=== PATIENT | female | born 1975 | race African-American/Black ===

== ENCOUNTER 2018-02-01 13:53 | Emergency (ER) | payer BC, SELFPAY ==
[2018-02-01 16:20] LABS: Bilirubin Negative (Negative); Blood, Urine Negative (Negative); Clarity CLEAR (Clear); Glucose, Urine (Dipstick) Negative (Negative); Leukocyte Negative (Negative); Nitrite Negative (Negative); Protein, Urine (Dipstick) Negative (Neg-Trace)
[2018-02-01 16:23] LABS: Pregnancy Test - Urine (BHCG) Negative (Negative); Pregu Control Background? CLEAR/WHITE (CLR/WHITE); Pregu Control Bar Appear? YES (CONTROL BAR)
[2018-02-01 16:36] LABS: #Basophils 0.1 thou/uL (0.0-0.2); #Lymphocytes 3.5 thou/uL (1.20-3.40); #Monocytes 0.5 thou/uL (0.11-0.59); #Neutrophils 3.4 thou/uL (1.40-6.50); %Basophils 1.1 % (0.0-1.0); %Eosinophils 0.2 % (0.0-10.0); %Lymphocytes 47.4 % (21.0-51.0); %Neutrophils 45.3 % (42.0-75.0); Hemoglobin 12.6 g/dL (12.0-16.0); Mean Corpuscular HGB CONC 32.6 g/dL (32.0-36.0); Mean Corpuscular Hemoglobin 24.7 pg (27.0-31.0); Mean Corpuscular Volume 75.7 fL (78.0-98.0); Mean Platelet Volume 8.7 fL (7.4-10.4); Platelet Count 208 thou/uL (130-400); RBC Distribution Width 13.2 % (11.5-14.5); Red Blood Cell (RBC) Count 5.09 mill/uL (4.20-5.40); White Blood Cell (WBC) Count 7.4 thou/uL (4.8-10.8)
[2018-02-01 16:55] LABS: ALT (SGPT) 13 U/L (8-55); AST (SGOT) 17 U/L (5-34); Albumin 4.2 g/dL (3.5-5.0); Alkaline Phosphatase 53 U/L (40-150); Anion Gap 13 mmol/L (10-20); BUN (Urea Nitrogen) 9 mg/dL (7.0-18.7); Bilirubin, Total 0.5 mg/dL (0.2-1.2); Calc. Creatinine Clearance 0 mL/min (70-130); Calcium 9.3 mg/dL (7.8-10.44); Carbon Dioxide 25 mmol/L (22-29); Chloride 105 mmol/L (98-107); Estimated GFR-MDRD 90; Globulin 3.6 g/dL (2.4-3.5); Glucose 95 mg/dL (70-105); Protein, Total 7.8 g/dL (6.0-8.3); Sodium 139 mmol/L (136-145)
--- NOTE | 2018-02-01 17:27 | CT ---
CT PELVIS WITH CONTRAST: HISTORY: Pelvic pain. COMPARISON: None. FINDINGS: There appears to be a prior ventral hernia repair, incompletely evaluated. No dilated loops of bowel in the abdomen. The appendix is felt to be visualized and appears normal. Bilateral fallopian tube closure devices a re appreciated. No free fluid within the pelvis. No acute osseous abnormality. IMPRESSION: No acute intrapelvic abnormality. POS: [facility]
[2018-02-01] MEDS ORDERED: Ketorolac Tromethamine 30 MG/ML VIAL ONE (17:29)
== END 2018-02-01 17:46 | disposition home or self-care (01) ==
LOC: ERS 13:53
DX: R10.2 Pelvic and perineal pain (principal); F17.210 Nicotine dependence, cigarettes, uncomplicated; Z71.6 Tobacco abuse counseling
CPT/HCPCS: 36415; 72193; 80053; 81003; 81025; 85025; 96374; 99406; J1885

== ENCOUNTER 2018-05-04 19:04 | Emergency (ER) | payer BC | END 2018-05-04 19:45 | disposition left against medical advice (07) | LOC: ERS 19:04 | DX: Z53.21 Procedure and treatment not carried out due to patient leaving prior to being seen by health care provider (principal) ==

== ENCOUNTER 2018-06-24 18:36 | Emergency (ER) | payer BC, OTHER ==
[2018-06-24] MEDS ORDERED: Cyclobenzaprine 10 MG TAB ONE (20:07)
[2018-06-24] MEDS ORDERED: Ketorolac Tromethamine 30 MG/ML VIAL ONE (20:07)
== END 2018-06-24 20:25 | disposition home or self-care (01) ==
LOC: ERS 18:36
DX: M54.5 Low back pain (principal); M54.2 Cervicalgia; F17.210 Nicotine dependence, cigarettes, uncomplicated; G43.909 Migraine, unspecified, not intractable, without status migrainosus; V43.62XA Car passenger injured in collision with other type car in traffic accident, initial encounter
CPT/HCPCS: 96372; J1885

== ENCOUNTER 2023-10-12 14:45 | Emergency (ER) | payer BC, SELFPAY | END 2023-10-12 16:22 | disposition home or self-care (01) | LOC: ERS 14:45 | DX: F45.8 Other somatoform disorders (principal); R06.02 Shortness of breath; G43.909 Migraine, unspecified, not intractable, without status migrainosus; I10 Essential (primary) hypertension; R73.03 Prediabetes; F17.210 Nicotine dependence, cigarettes, uncomplicated; Z55.6 Problems related to health literacy | CPT/HCPCS: 71045; 93005 ==